=== PATIENT | female | born 1975 | race Caucasian/White ===

== ENCOUNTER 2017-12-02 23:58 | Emergency (ER) | payer OTHER ==
[~2017-12-02] VITALS: Ht 152.4 cm; Wt 59.1 kg
[~2017-12-02 23:58] MED LIST: ACET650S14 PR; BISA5TAB12 PO; CIPR-278 PO; METR500 PO
[2017-12-03] MEDS: HYDROCODONE/ACETAMINOPHEN 5-325 MG TABLET PO ONE ×2 (02:43→02:47)
[2017-12-03] MEDS ORDERED: PERTUSS(ACELL),DIPH,TET VAC/PF 0.5 ML VIAL IM ONE (02:45)
[2017-12-03] MEDS ORDERED: LIDOCAINE HCL 2%/EPI 1:200,000/PF 20 ML VIAL INJ ONE (02:45)
[2017-12-03] MEDS ORDERED: SODIUM CHLORIDE 0.9% 250 ML IRRIG SOLUTION BOTTLE IRRIG ONE (02:45)
[2017-12-03] MEDS ORDERED: ACETAMINOPHEN 325 MG TABLET PO ONE (03:00)
[2017-12-03] MEDS ORDERED: LIDOCAINE HCL 1% 10 ML VIAL ONE (05:11)
[2017-12-03] MEDS ORDERED: LIDOCAINE HCL 1% 20 ML VIAL INJ ONE (05:15)
[2017-12-03 05:45] VITALS: BP 120/81
== END 2017-12-03 06:28 | disposition home or self-care (01) ==
LOC: EMS 23:59
DX: S91.311A Laceration without foreign body, right foot, initial encounter (principal); Z87.891 Personal history of nicotine dependence; Z88.0 Allergy status to penicillin; Z88.6 Allergy status to analgesic agent; V29.9XXA Motorcycle rider (driver) (passenger) injured in unspecified traffic accident, initial encounter; Y93.55 Activity, bike riding; Y92.89 Other specified places as the place of occurrence of the external cause; Y99.8 Other external cause status
CPT/HCPCS: 12002; 73630; 90471; 90715; 99284; J2001; J3490